=== PATIENT | male | born 1985 | race Two or more races ===

== ENCOUNTER 2020-01-23 20:42 | Emergency (ER) | payer BC, OTHER ==
[~2020-01-23] VITALS: Ht 165.1 cm; Wt 90.9 kg
[2020-01-23] MEDS ORDERED: DIPH,PERTUSS(ACELL),TET VAC/PF 0.5 ML IM-VACC ONE ×2 (21:00→21:06)
[2020-01-23] MEDS ORDERED: LIDOCAINE 1%, 50ML INFIL ONE (21:00)
[2020-01-23] MEDS ORDERED: LIDOCAINE-MPF 1%, 5ML ONE (21:05)
[2020-01-23] MEDS ORDERED: LIDOCAINE 1%-EPI 1:100K, 20ML ONE (22:47)
[2020-01-23] MEDS ORDERED: NEOSPORIN OINT. PKT 1 PACKET ONE ×2 (23:39→23:49)
[2020-01-23 23:58] VITALS: BP 124/79
== END 2020-01-24 00:01 | disposition home or self-care (01) ==
LOC: ED 21:55
DX: S81.812A Laceration without foreign body, left lower leg, initial encounter (principal); W18.39XA Other fall on same level, initial encounter; Y93.79 Activity, other specified sports and athletics; Y92.488 Other paved roadways as the place of occurrence of the external cause; Y99.8 Other external cause status
CPT/HCPCS: 12035; 99284

== ENCOUNTER 2020-02-05 10:05 | Emergency (ER) | payer SELFPAY ==
[~2020-02-05] VITALS: Ht 165.1 cm; Wt 88.8 kg
--- NOTE | 2020-02-05 11:38 | NUR ---
Pt here for suture removal to L lower leg. Tech at bedside to perform. Pt unable to recall current medication, currently taking ABX.
[2020-02-05 12:21] VITALS: BP 125/79
== END 2020-02-05 12:23 | disposition home or self-care (01) ==
LOC: SUATTDRO 12:08 → ED 12:12
PROVIDERS: ATTEND Internal Medicine
DX: S81.811D Laceration without foreign body, right lower leg, subsequent encounter (principal); Z76.0 Encounter for issue of repeat prescription; X58.XXXD Exposure to other specified factors, subsequent encounter
CPT/HCPCS: 99281